=== PATIENT | female | born 1960 | race Caucasian/White ===

== ENCOUNTER → 2016-10-12 | Outpatient (CLI) | payer MEDICARE ==
[~2016-10-12] MED LIST: ALPRAZOLAM0.5 MG PO; AMARYL4 MG PO; ASPIR-LOW81 MG PO; COREG 12.5MG12.5 MG PO; ELAVIL 10 MG TA10 MG PO; GLUCOPHAGE1000 MG PO; IMDUR ER TAB 3030 MG PO; LEVAQUIN500 MG PO; LEVEMIR100 UNIT/1 SQ; LIDODERM700 MG TOP; LIPITOR TAB 2020 MG PO; LISINOPRIL5 MG PO; LORATADINE10 MG PO; NEURONTIN800 MG PO; NORCO 5-325 TA1 EACH PO; NOVOLOG 10100 UNITS1 SQ; NYSTATIN100000 UNI PO; PROTONIX40 MG PO; PROZAC10 MG PO; SURFAK240 MG PO; SYNTHROID100 MCG PO; VITAMIN B-1000 MCG/M IM; ZANAFLEX4 MG PO
== END ==
LOC: KOH-I 10-09 14:00
DX: M84.474A Pathological fracture, right foot, initial encounter for fracture (principal)
CPT/HCPCS: 73700

== ENCOUNTER 2016-10-27 14:41 | Observation (INO) | payer MEDICARE ==
[~2016-10-27] VITALS: Ht 172.7 cm; Wt 88.6 kg
[2016-10-27 16:25] LABS: HEMOGLOBIN 13.6 gm/dl (12.3-15.3); RED BLOOD COUNT 4.7 M/UL (4.00-5.10); WHITE BLOOD COUNT 10.5 K/UL (4.5-11.0)
== END 2016-10-28 12:54 | disposition left against medical advice (07) ==
LOC: ER1 14:41 → ZEROF 17:39 → PROG CARE 17:39
PROVIDERS: Family Medicine; Internal Medicine; ADMIT Family Medicine
DX: T42.8X1A Poisoning by antiparkinsonism drugs and other central muscle-tone depressants, accidental (unintentional), initial encounter (principal); T42.6X1A Poisoning by other antiepileptic and sedative-hypnotic drugs, accidental (unintentional), initial encounter; G92 Toxic encephalopathy; E87.2 Acidosis; N39.0 Urinary tract infection, site not specified; N17.9 Acute kidney failure, unspecified; R00.0 Tachycardia, unspecified; Z91.19 Patient's noncompliance with other medical treatment and regimen; J96.21 Acute and chronic respiratory failure with hypoxia; Y92.512 Supermarket, store or market as the place of occurrence of the external cause; F19.20 Other psychoactive substance dependence, uncomplicated; F19.10 Other psychoactive substance abuse, uncomplicated; I11.0 Hypertensive heart disease with heart failure; I50.32 Chronic diastolic (congestive) heart failure; E11.9 Type 2 diabetes mellitus without complications; I25.10 Atherosclerotic heart disease of native coronary artery without angina pectoris; E03.9 Hypothyroidism, unspecified; E78.5 Hyperlipidemia, unspecified; F41.9 Anxiety disorder, unspecified; F32.9 Major depressive disorder, single episode, unspecified; G89.29 Other chronic pain; Z91.419 Personal history of unspecified adult abuse; D64.9 Anemia, unspecified; Z88.2 Allergy status to sulfonamides; Z79.82 Long term (current) use of aspirin; Z79.4 Long term (current) use of insulin; Z79.899 Other long term (current) drug therapy; Z95.5 Presence of coronary angioplasty implant and graft
CPT/HCPCS: 36415; 36600; 70450; 71010; 80048; 80053; 80307; 81001; 82550; 82553; 82803; 83605; 83874; 84484; 85025; 85610; 85730; 87040; 87086; 93005; 96361; 96374; 96375; 96376; 99285; G0378; G0480; J0696; J2550; J7030; J7050